=== PATIENT | female | born 1940 | race Caucasian/White ===

== ENCOUNTER 2021-03-23 14:54 | Emergency (ER) | payer MEDICARE, OTHER, SELFPAY ==
[2021-03-23 14:55] VITALS: BP 162/55; PULSE 93; RESP 18; TEMP 37.8; O2SAT 94; BMI 25.9
--- NOTE | 2021-03-23 15:02 | ED.RN ---
DR. LYNCH MADE AWARE OF PT SX AND PRESENTATION AT 1500.
--- NOTE | 2021-03-23 15:14 | EKG12_ITS ---
Test Reason : SOB Blood Pressure : / mmHG Vent. Rate : 092 BPM Atrial Rate : 092 BPM P-R Int : 172 ms QRS Dur : 088 ms QT Int : 338 ms P-R-T Axes : 047 -17 016 degrees QTc Int : 417 ms Normal sinus rhythm Left ventricular hypertrophy with repolarization abnormality Abnormal ECG Confirmed by MOI SMITH, CHASE ([id number]), market editor AIDAN KELLY ([id number]) on 03/24/2021 1:32:24 PM Referred By: PL Confirmed By:BRI PRATER MD
--- NOTE | 2021-03-23 15:16 | EDS_ITS ---
HPI History of Present Illness Chief Complaint: Weakness Informant: patient and family Narrative Narrative: Patient presents with episode of generalized weakness that started after lunch today. She states she has been feeling well. She has had a very slight nonproductive cough for the last day. But she does not at all feel short of breath. She ate lunch normally. When she got up she just felt weak. She was able to stand but just did not feel strong enough so she sat back down. She was able to be helped out of the restaurant by a family member holding her arm. She was not falling to 1 side or the other. There is never any focal deficit. There is no speech understanding or vision change. She just felt overall sort of weak. She felt the same when she got up out of the car to come in here. She does have a slight elevated temperature. Evidently they were around some [facility] people who had some illness within the last week or 2. We do not know what that was. Patient is not vaccinated against COVID. Past medical history: High blood pressure, mini strokes, hypothyroidism, possible high cholesterol Medications are reviewed. We are getting a list from the family to make sure this is accurate. Patient is on Plavix and she does recall that. No known drug allergies No recent surgeries Non-smoker, lives with family members. 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 ; Denies sore throat Cardiovascular Cardiovascular: Denies chest pain or palpitations Respiratory/Chest Respiratory/Chest: Reports cough; Denies dyspnea or sputum Gastrointestinal Gastrointestinal: Denies diarrhea, nausea or vomiting Genitourinary Genitourinary ED: Reports other Details: No urinary symptoms, no change in color or odor or dysuria. ; Denies dysuria, hematuria or urinary frequency Musculoskeletal Musculoskeletal: Denies myalgias Integumentary Denies rash Neurologic Neurologic: Reports other Details: Patient describes having a very tiny headache this morning. It resolved with eating. It is not out of the ordinary. ; Denies paresthesias or weakness Endocrine Endocrinology: Denies polydipsia or polyuria Allergic/Immunologic Allergic/Immunologic ED: Denies mouth swelling, tongue swelling or urticaria EXAM Physical Exam Const Vital Signs: 03/23/21 14:55 03/23/21 15:11 03/23/21 16:09 Temperature 100.1 F H 99.4 F H Temperature Source Temporal Oral Pulse Rate 93 20 L Respiratory Rate 18 30 H Respiratory Effort Normal Respiratory Pattern Normal Blood Pressure 162/55 H 151/59 H Blood Pressure Mean 90 89 Pulse Ox 94 97 Oxygen Delivery Method Room Air Room Air 03/23/21 17:14 Temperature Temperature Source Pulse Rate 95 Respiratory Rate 18 Respiratory Effort Respiratory Pattern Blood Pressure 141/60 H Blood Pressure Mean 87 Pulse Ox 96 Oxygen Delivery Method Room Air Patient is appropriately dressed and groomed. She is pleasant. She easily carries on a conversation. She is a reasonably good informant. She forgets some of her medications. Positive well nourished and well developed; Negative for unkempt General Appearance ED: well developed and NAD; Negative for unkempt, cyanotic or diaphoretic HEENT Reports moist mucous membranes Negative for trauma or tenderness Eyes General Eye ED: Negative for pale conjunctiva or scleral icterus Neck no JVD Chest Wall inspection of chest normal Resp normal respiratory effort and clear to auscultation bilaterally Effort and Inspection: Negative for pain with movement Auscultation: Negative for rales, rhonchi or wheezes Cardio regular rate, regular rhythm and no murmurs GI normal to inspection, nondistended, normoactive bowel sounds and non-tender Palpation: soft Back/Spine no CVA tenderness Extremity normal to inspection General Extremety ED: Negative for edema or tenderness General Extremity: Negative for edema Neuro oriented x3 Neuro Narrative: Patient has an NIH of 0. Sensorium / Orientation: alert Psych mental status grossly normal Appearance: Negative for unkempt Mood & Affect: Negative for depressed Skin no rashes or lesions noted and no wounds MDM MDM MDM Narrative Medical decision making narrative: Patient's blood work shows normal CBC. Her electrolytes do show some mild dehydration. But she has been eating and drinking well. I do not think she needs hydration especially in light of the fact that her COVID is positive. Her urinalysis shows no acute process. CT of the head and chest x-ray showed no acute process. Patient has been walked. She did not desaturate below about 95 or 6% ambulating. I think the patient can go home. We will get her set up for monoclonal therapy. We discussed reasons to return. Lab Data Attestation: I reviewed the patient's lab results. Labs: Laboratory Results - last 24 hr 03/23/21 03/23/21 03/23/21 15:30 15:30 15:30 WBC 8.7 RBC 4.61 Hgb 14.1 Hct 42.0 MCV 91.1 MCH 30.6 MCHC 33.6 RDW Std Deviation 44.1 H RDW Coeff of [place] 13.2 Plt Count 237 MPV 9.8 Immature Gran % (Auto) 0.500 Neut % (Auto) 73.1 H Lymph % (Auto) 10.9 L [place] % (Auto) 13.0 H Eos % (Auto) 1.6 Baso % (Auto) 0.9 Absolute Neuts (auto) 6.4 Absolute Lymphs (auto) 0.95 Nucleated RBC % 0 Sodium 134 L Potassium 3.7 Chloride 101 Carbon Dioxide 23.0 Anion Gap 10 BUN 16 Creatinine 1.38 H Estim Creat Clear Calc 26.11 Est GFR (MDRD) Af Amer 47 L Est GFR (MDRD) Non-Af 39 L BUN/Creatinine Ratio 11.6 Glucose 113 H Calcium 9.9 Urine Color Yellow Urine Clarity Clear Urine pH 6.5 Ur Specific [place] 1.015 Urine Protein Negative Urine Glucose (UA) Normal Urine Ketones Negative Urine Occult Blood 10 H Urine Nitrite Negative Urine Bilirubin Negative Urine Urobilinogen Normal Ur Leukocyte Esterase Negative Urine RBC 0 SEEN Urine WBC 0 SEEN Ur Squamous Epith Cells 0 SEEN Urine Bacteria 0 SEEN Urine Mucus 0 SEEN Radiography Diagnostic Testing: Clinical Impression(s) from Imaging Studies Brain CT 03/23/21 15:55 IMPRESSION: There are no acute findings. Chronic involutional changes of the brain. Electronically Signed: Antwon Torres MD at 16:11 EST , Service support , Chest X-Ray 03/23/21 16:10 IMPRESSION: There are no acute findings. 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 May also see your private physician down in [place]. Disposition Disposition: Home, Self Care
[2021-03-23 15:42] LABS: Bacteria 0 SEEN /hpf (None Seen); Mucous, Urine 0 SEEN /hpf (<or=2+); Red Blood Cells-Urine 0 SEEN /hpf (0-5); Squamous Epithelial Cells - UA 0 SEEN /hpf (5-10); White Blood Cells 0 SEEN /hpf (0-5)
[2021-03-23 15:46] LABS: Absolute Lymphocyte Count 0.95 X10^3/uL (0.83-4.51); Absolute Neutrophil Count 6.4 X10^3/uL (2.0-7.7); Basophil# 0.08 X10^3/uL; Basophil% 0.9 % (0-1); Eosinophil# 0.14 X10^3/uL; Eosinophils% 1.6 % (0-5); Hemoglobin 14.1 g/dL (12.0-15.0); Lymphocyte # 0.95 X10^3/ul (0.83-4.51); Lymphocyte % 10.9 % (19-41); Mean Corp Hgb Conc 33.6 g/dL (32-36); Mean Corpuscular Hgb 30.6 pg (27.0-32.0); Mean Corpuscular Volume 91.1 fL (81-99); Mean Platelet Vol. 9.8 fl (6.2-12.0); Monocyte# 1.13 X10^3/uL; NRBC Flagged by Analyzer 0 % (0-5); Neutrophil # 6.37 X10^3/uL (2.7-7.7); Neutrophil % 73.1 % (47-70); Platelet Count 237 K/mm3 (150-450); RBC Distribution Width CV 13.2 % (11.6-14.6); RBC Distribution Width SD 44.1 fl (35.1-43.9); Red Blood Count 4.61 M/mm3 (4.2-5.4); White Blood Count 8.7 K/mm3 (4.4-11.0)
[2021-03-23 15:51] LABS: Color, Urine Yellow (Yellow); Glucose, Dipstick Normal (Normal); Ketone-Dipstick Negative (Negative); Leukocyte Esterase-Dipstick Negative /ul (Negative); Nitrite-Dipstick Negative (Negative); Occult Blood-Urine 10 /ul (Negative); Protein-Dipstick Negative (Negative); Specific Gravity, Urine 1.015 (1.002-1.030); Urine Bilirubin Dipstick Negative (Negative); Urine Clarity Clear (Clear); Urine Urobilinogen Normal (Normal); Urine pH 6.5 (5.0 - 8.0)
--- NOTE | 2021-03-23 15:55 | CT_ITS ---
STUDY: CT BRAIN WITHOUT CONTRAST REASON FOR EXAM: Female, 81 years old. weakness Individualized dose optimization techniques were used for this CT. TECHNIQUE: Transaxial CT imaging of the brain was performed without administration of intravenous contrast material. COMPARISON: None FINDINGS: There are calcifications around the carotid artery. These are noted in the cavernous carotid arteries. Normal calvarium. Normal soft tissues. There is mild cerebral atrophy with widening of the extra-axial spaces and ventricular dilatation. There are areas of decreased attenuation within the white matter tracts of the supratentorial brain, consistent with microvascular disease changes. 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 Normal brainstem. There is mild cerebellar atrophy. There is no intracranial hemorrhage. There are no findings of an acute ischemic infarction. There is mucoperiosteal inflammatory disease of the paranasal sinuses consistent with mild chronic sinusitis. ASPECTS Score for Acute Strokes: 12/19 CT/Brain/Head without Contrast IMPRESSION: There are no acute findings. Chronic involutional changes of the brain. Electronically Signed: Antwno Torres MD at 16:11 EST , Service support ,
[2021-03-23 15:58] LABS: Anion Gap 10 (5-15); BUN 16 mg/dL (7-18); BUN/Creat Ratio 11.6 RATIO (10-20); Calcium,Total 9.9 mg/dL (8.5-10.1); Chloride 101 mmol/L (98-107); Creatinine, Serum 1.38 mg/dL (0.55-1.02); EST Glomerular Filtration Rate 39 mL/min (>60); Est Glom Filt Rate - Afr Amer 47 mL/min (>60); Estimated Creatinine Clearance 26.11 ml/min; Glucose 113 mg/dL (74-106); Potassium 3.7 mmol/L (3.5-5.1); Sodium Level 134 mmol/L (136-145)
[2021-03-23 16:09] VITALS: BP 151/59; PULSE 20; PULSE 96; RESP 28; RESP 30; TEMP 37.4; O2SAT 96; O2SAT 97
--- NOTE | 2021-03-23 16:10 | RAD_ITS ---
STUDY: X-RAY CHEST REASON FOR EXAM: Female, 81 years old. CHEST PAIN cough TECHNIQUE: XR Chest 1 View COMPARISON: Yesterday FINDINGS: There is no demonstrated pleural abnormality. There is an elevated right hemidiaphragm. There is borderline cardiomegaly. Normal mediastinum and brittin. Normal visualized pulmonary arteries. There is atherosclerotic calcification of the aortic arch with tortuosity. There are diffuse degenerative changes of the visualized thoracic spine. There is degenerative osteoarthritis of the bilateral shoulders. There is no demonstrated abnormality of the visualized soft tissue structures of the upper abdomen. RAD/Chest 1 View (Portable) IMPRESSION: There are no acute findings. Electronically Signed: Antwon Torres MD at 16:30 EST , Service support ,
[2021-03-23 17:14] VITALS: BP 141/60; PULSE 95; RESP 18; O2SAT 96
[2021-03-23 18:11] VITALS: BP 141/77; PULSE 91; RESP 26; O2SAT 96
--- NOTE | 2021-03-23 18:14 | ED.RN ---
THIS RN REVIEWED D/C INSTRUCTIONS WITH PT, PT DAUGHTER AT BEDSIDE, AND PT DAUGHTER WHO SHE LIVES WITH VIA PHONE. FAMILY EDUCATED ON [facility] ANTIBODY REFERRAL AND THE PROCESS. FAMILY VERBALIZES QUESTIONS, QUESTIONS ANSWERED BY THIS RN. PT AND FAMILY VERBALIZE UNDERSTANDING OF D/C INSTRUCTIONS, AND VERBALIZE NO FURTHER QUESTIONS. PT IV D/C AND COVERED WITH 2X2 GAUZE AND PAPER TAPE. PT ASSISTED IN DRESSING. PT AWAITING DAUGHTER TO PICK HER UP.
== END 2021-03-23 18:59 | disposition home or self-care (01) ==
PROVIDERS: Emergency Provider Emergency Medicine; Visit Provider Emergency Medicine
DX: U07.1 COVID-19 (principal); R53.83 Other fatigue
CPT/HCPCS: 70450; 71045; 80048; 81001; 85025; 87426; 93005; 99283; A4216